=== PATIENT | female | born 1950 | race Asian ===

== ENCOUNTER → 2017-07-04 | Day surgery (SDC) | payer MEDICARE ==
[2017-06-18 14:57] LABS: BASOPHILS % 0.7 % (0.0-1.0); EOSINOPHILS % 0.9 % (0.0-6.0); HEMATOCRIT 39.3 % (34.2-44.1); HEMOGLOBIN 12.4 g/dL (12.0-16.0); LYMPHOCYTES # (AUTO) 1.8 (1.0-3.2); LYMPHOCYTES % 40.1 % (18.0-39.1); MEAN CORPUSCULAR HEMOGLOBIN 22.2 pg (28-32); MEAN CORPUSCULAR HGB CONC 31.6 g/dL (31-35); MEAN CORPUSCULAR VOLUME 70.4 fL (81-99); MONOCYTES # (AUTO) 0.3 (0.2-0.8); MONOCYTES % 6.3 % (4.4-11.3); NEUTROPHILS # (AUTO) 2.3 (2.1-6.9); NEUTROPHILS % 51.6 % (38.7-80.0); PLATELET COUNT 247 x10e3/uL (140-360); RED BLOOD COUNT 5.58 x10e6/uL (3.6-5.1); RED CELL DISTRIBUTION WIDTH 14.4 % (11.7-14.4)
[~2017-07-04] MED LIST: ASPIR 8181 MG PO; FENTANYL CITRATE/PF 100MCG/2 ML INJ ONE; INSULIN REGULAR, HUMAN 100 UNIT/1 ML 3ML VIAL ONE; LEVOTHYROXINE50 MCG PO; LISINOPRIL10 MG PO; METFORMIN HCL500 M1 PO; MIDAZOLAM HCL 2 MG/2 ML VIAL ONE; NESINA PO; OR PHACO EYE KIT ONE; PHENTERMINE H37.5 M1 PO; PREOP PHACO EYE KIT ONE; TRIAMTERENE-HCTZ1 EA PO
== END | disposition home or self-care (01) ==
LOC: OR 08:53
PROVIDERS: ATTEND Ophthalmology
DX: H25.11 Age-related nuclear cataract, right eye (principal); E11.9 Type 2 diabetes mellitus without complications; E04.9 Nontoxic goiter, unspecified; I10 Essential (primary) hypertension; E03.9 Hypothyroidism, unspecified; Z01.812 Encounter for preprocedural laboratory examination; Z79.82 Long term (current) use of aspirin
CPT/HCPCS: 36415 ×2; 66984; 82948; 85025; J2250; V2632

== ENCOUNTER → 2018-03-03 | Outpatient (CLI) | payer MEDICARE ==
[~2018-03-03] MED LIST changes: -FENTANYL CITRATE/PF 100MCG/2 ML INJ ONE; -INSULIN REGULAR, HUMAN 100 UNIT/1 ML 3ML VIAL ONE; -MIDAZOLAM HCL 2 MG/2 ML VIAL ONE; -OR PHACO EYE KIT ONE; -PREOP PHACO EYE KIT ONE
--- NOTE | 2018-03-03 13:12 | Diagnostic Imaging Report ---
EXAM: Bone mineral density study 03/03/2018 11:13 AM INDICATION: \S\MENOPAUSAL COMPARISON: None FINDINGS: Evaluation of the left hip and lumbar spine was performed. The study is technically adequate. The patient's fracture risk is compared to an age-matched control. Left femoral neck bone mineral density: 0.682 g/cm2, T-score is -1.5, Z-score is 0.1. Left hip total bone mineral density: 0.719 g/cm2, T-score is -1.8, Z-score is -0.5. Lumbar spine total bone mineral density: 1.161 gm/cm2, T-score is 1.0, Z-score is 2.9. IMPRESSION: Bone mineralization by WHO Classification is normal for lumbar spine, the fracture risk is not increased. Bone mineralization by WHO Classification is osteopenia for left hip, the fracture risk is increased. Signed by: Dr. Sandro Duncan MD on 03/03/2018 1:09 PM
== END ==
LOC: MAMMO 11:05
PROVIDERS: ATTEND Specialist
DX: Z12.31 Encounter for screening mammogram for malignant neoplasm of breast (principal); Z13.820 Encounter for screening for osteoporosis; Z78.0 Asymptomatic menopausal state
CPT/HCPCS: 77067; 77080

== ENCOUNTER → 2018-06-04 | Day surgery (SDC) | payer MEDICARE ==
[2018-05-26 12:29] LABS: BASOPHILS % 0.6 % (0.0-1.0); EOSINOPHILS # (AUTO) 0.1 (0.0-0.4); EOSINOPHILS % 1.5 % (0.0-6.0); HEMATOCRIT 38.2 % (34.2-44.1); HEMOGLOBIN 11.6 g/dL (12.0-16.0); LYMPHOCYTES # (AUTO) 1.5 (1.0-3.2); LYMPHOCYTES % 28.3 % (18.0-39.1); MEAN CORPUSCULAR HGB CONC 30.4 g/dL (31-35); MEAN CORPUSCULAR VOLUME 72.3 fL (81-99); MONOCYTES # (AUTO) 0.4 (0.2-0.8); MONOCYTES % 7.1 % (4.4-11.3); NEUTROPHILS # (AUTO) 3.2 (2.1-6.9); NEUTROPHILS % 61.9 % (38.7-80.0); PLATELET COUNT 286 x10e3/uL (140-360); RED BLOOD COUNT 5.28 x10e6/uL (3.6-5.1); RED CELL DISTRIBUTION WIDTH 13.6 % (11.7-14.4)
[~2018-06-04] MED LIST changes: +EPHEDRINE SULFATE INJ 50 MG/10 ML SYR ONE; +FENTANYL CITRATE/PF 100MCG/2 ML INJ ONE; +GLUCAGON FOR INJ 1 MG VIAL ONE; +HYOSCYAMINE SULFATE 0.5 MG/ML INJ ONE; +JANUMET 50-5001 EACH PO; +LANTUS 3ML100 UNITS/ SC; +LIDOCAINE HCL 2% LOCAL INJ 5 ML SDV VIAL INJ ONE; +MIDAZOLAM HCL 2 MG/2 ML VIAL ONE; +PROPOFOL IV EMULSION 10 MG/ML 50 ML VIAL ONE
--- OUTSIDE RECORDS SUMMARY | 2018-06-04 06:58 | XMS REPORT ---
Author Author [facility] Address Unknown Phone Unavailable Care Team Providers Care Owner [employer] Name Role Phone DENYS HERNANDES Unavailable Unavailable Problems This patient has no known problems. Allergies, Adverse Reactions, Alerts This patient has no known allergies or adverse reactions. Medications This patient has no known medications. Results Test Description Test Time Test Comments Text Results Atomic Results Result Comments BONE DXA DUAL ENERGY 2018-03-03 13:07:00 [place] [address] Patient Name: WALESKA SPANGLER MR #: [id number] : 1950 Age/Sex: 67/F Req #: [id number] [facility] Physician: Ordered by: DENYS HERNANDES MD Report #: [id number] Location: [facility] Room/Bed: Procedure: [id number] DX/BONE DXA DUAL ENERGY Exam Date: Exam Time: REPORT STATUS: Signed EXAM: Bone mineral density study 03/03/2018 11:13 AM INDICATION: COMPARISON: None FINDINGS: Evaluation of the left hip and lumbar spine was performed. The study is technically adequate. The patient's fracture risk is compared to an age-matched control. Left femoral neck bone mineral density: 0.682 g/cm2, T-score is -1.5, Z-score is 0.1. Left hip total bone mineral density: 0.719 g/cm2, T-score is -1.8, Z-score is -0.5. Lumbar spine total bone mineral density: 1.161 gm/cm2, T-score is 1.0, Z- score is 2.9. IMPRESSION: Bone mineralization by WHO Classification is normal for lumbar spine, the fracture risk is not increased. Bone mineralization by WHO Classification is osteopenia for left hip, the fracture risk is increased. Signed by: Dr. Sandro Glass MD on 03/03/2018 1:09 PM Dictated By: SANDRO GLASS MD 1309 Transcribed By: BRENDA on 03/03/18 1309 COPY TO: DENYS HERNANDES MD MAMMOGRAPHY DIGITAL SCR BILAT 2018-03-03 12:33:00 [place] [address] Patient Name: WALESKA SPANGELR MR #: [id number] : 1950 Age/Sex: 67/F Req #: [id number] [facility] Physician: Ordered by: DENYS HERNANDES MD Report #: [id number] Location: MAMMO Room/Bed: Procedure: [id number] MG/MAMMOGRAPHY DIGITAL SCR BILAT Exam Date: 03/03/18 Exam Time: 1108 REPORT STATUS: Signed #[id number] - [id number] #BILATERAL DIGITAL SCREENING MAMMOGRAM WITH CAD: 03/03/2018 CLINICAL: Routine screening. No prior exams were available for comparison. Current study contains 5 films. There are scattered fibroglandular elements in both breasts. Current study was also evaluated with a Computer Aided Detection (CAD) system. There are benign calcifications in both breasts. There also is a biopsy clip in the left breast. No significant masses, calcifications, or other findings are seen in either breast. IMPRESSION: BENIGN There is no mammographic evidence of malignancy. A 1 year screening mammogram is recommended. The patient will be notified by letter of the results. Phil mcgowan/wicho:03/06/2018 08:20:55 Land Resource Specialist: Veronica TONY(Thanh)(Alexander), [facility] letter sent: Normal Exam Mammogram BI-RADS: 2 Benign Dictated By: PHIL ALMANZA DO 9 Transcribed By: WICHO on 03/06/18819 COPY TO: DENYS HERNANDES MD MRI RIGHT KNEE WO [place] [address] Patient Name: WALESKA SPANGLER MR #: [id number] : 1950 Age/Sex: 66/F Req #: [id number] [facility] Physician: Ordered by: DENYS HERNANDES MD Report #: [id number] Location: MRI Room/Bed: Procedure: [id number] MRI/MRI RIGHT KNEE WO Exam Date: 04/01/17 Exam Time: 1430 REPORT STATUS: Signed TECHNIQUE: Magnetic resonance imaging of the RIGHT KNEE was performed WITHOUT injected contrast. HISTORY: Right knee COMPARISON: None available. FINDINGS: LIGAMENTS AND TENDONS: ACL: Intact PCL: Intact Collateral ligaments: Intact Iliotibial band: Unremarkable Popliteal tendon: Intact Extensor mechanism: Intact JOINT: Menisci: Medial: Root degeneration without tear. Mild meniscal extrusion. Lateral: Intact without tear Articular Cartilage: Medial Compartment: Diffuse partial thickness cartilage loss Lateral Compartment: Diffuse partial thickness cartilage loss Patellofemoral Compartment: Diffuse partial thickness cartilage loss Joint Fluid: Small joint effusion. BONE: No focal or infiltrative bone marrow replacing abnormality. No acute fracture. SOFT TISSUES: Otherwise, unremarkable. IMPRESSION: Medial meniscus root degeneration with extrusion. No tear. Tricompartmental cartilage loss. Signed by: Dr. Marek Harkins M.D. on 04/01/2017 4:05 PM Dictated By: MAREK HARKINS MD 160 Transcribed By: BRENDA on 04/01/17 1605 COPY TO: DENYS HERNANDES MD MRI SPINE LUMBAR WO [place] [address] Patient Name: WALESKA SPANGLER MR #: [id number] : 1950 Age/Sex: 66/F Req #: [id number] Adm Physician: Ordered by: DENYS HERNANDES MD Report #: [id number] Location: MRI Room/Bed: Procedure: [id number] MRI/MRI SPINE LUMBAR WO Exam Date: 04/01/17 Exam Time: 1430 REPORT STATUS: Signed History: Fell. Low back and right leg pain Comparison studies: None Technique: Sagittal, coronal and axial T2 , sagittal T1 and IR, axial spin density oblique. Intravenous contrast: None Findings: Number of lumbar vertebral bodies:5 Alignment: Normal lordosis.No scoliosis. Soft tissues: No T2 hyperintense inflammatory changes. 0.8 cm cystic lesion is seen in the left kidney lower pole. Paraspinal muscles: No signal abnormalities. No atrophy. Lower thoracic cord:Normal in signal and morphology. The tip of the conus is at T12-L1. Cauda equina: No masses. No arachnoiditis. Vertebrae: Normal in height. Hypointense lesion is seen at L3 vertebral body with fat content, most likely related to atypical hemangioma.. No compression fractures, infection or neoplasm. Degenerative changes: T12-11: inferiorly migrated disc extrusion results in moderate canal stenosis. AT12-L1: Mild disc degeneration. Inferiorly migrated disc extrusion results in mild canal stenosis without significant foraminal narrowing L1-L2: Mild disc degeneration with loss of T2 signal. L2 superior endplate Schmorl node. Mild disc bulge and mild facet hypertrophy results in mild canal stenosis without significant foraminal narrowing. L2-L3: Disc degeneration with loss of T2 signal at L2 inferior endplate Schmorl node is disc bulge and mild facet hypertrophy results in mild canal stenosis and mild left foraminal narrowing. L3-L4: Disc degeneration with loss of T2 signal. Mild diffuse disc bulge, mild facet hypertrophy and ligamentum flavum thickening results in mild canal stenosis and mild foraminal narrowing. L4-L5: Disc degeneration with loss of T2 signal. Diffuse disc bulge with superimposed small central disc protrusion, moderate bilateral face t hypertrophy and ligamentum flavum thickening results in moderate canal stenosis and mild bilateral foraminal narrowing. L5-S1: Patent canal and foramina. Additional findings: Partially visualized prominent liver. Partially visualized uterine posterior wall fibroid. IMPRESSION: No acute spinal abnormality. Moderate canal stenosis at T11-T12 secondary to inferiorly migrated disc extrusion, which is partially visualized. Moderate canal stenosis and mild bilateral foraminal narrowing at L4-L5 secondary to degenerative changes. Other mild degenerative changes as described above results in mild canal stenosis. Signed by: DR Octavio Diaz M.D. on 04/01/2017 6:06 PM Dictated By: OCTAVIO CARLSON MD 05 Transcribed By: BRENDA on 04/01/171805 COPY TO: DENYS HERNANDES MD
[2018-06-04 10:45] VITALS: BP 132/88
[2018-06-04 11:30] LABS: % IRON SATURATION 18 % (15-50); IRON 92 ug/dL (50-170); TOTAL IRON BINDING CAPACITY 510 ug/dL (261-478); TRANSFERRIN 364 mg/dL (180-382)
--- NOTE | 2018-06-04 13:12 | Operative Report ---
DATE OF PROCEDURE: June 04, 2018 REFERRING PHYSICIAN: Dr. Denys Hernandes PROCEDURE PERFORMED: Colonoscopy and polypectomy. INDICATIONS FOR COLONOSCOPY: Colorectal cancer screening. MEDICATION: Patient was done under MAC. Please see anesthesiologist's note. PROCEDURE: With the patient in the left lateral decubitus position, the flexible fiberoptic Olympus colonoscope was inserted into the rectum with ease and advanced all the way to the cecum. Prep overall was suboptimal with retained stools in the colon. The scope was then withdrawn slowly, and the cecum appeared to be within normal limits. Two polyps were snared and 1 polyp was hot biopsied from the ascending colon. One polypectomy site was hemoclipped. The transverse grossly appeared to be within normal limits. Two polyps were snared from the descending colon. Two polyps were hot biopsied from the sigmoid colon. One polyp was snared and 1 polyp was hot biopsied from the rectum. The scope was then retroflexed into the distal rectum. Small internal hemorrhoids were noted, none of which was actively bleeding. The scope was then straightened out. It was subsequently withdrawn. Patient tolerated the procedure well. IMPRESSION 1. Suboptimal prep. 2. Ascending colon polyps times 3, two snared and one polypectomy site hemoclipped and 1 polyp hot biopsied. 3. Descending colon polyps times 2, snared. 4. Sigmoid colon polyps times 2, hot biopsied. 5. Rectal polyps times 2, one snared and one hot biopsied. 6. Internal hemorrhoids, none actively bleeding. PLAN: Follow up histology. Patient might benefit from a followup colonoscopy in 1 year due to the suboptimal prep. Job#: [id number] cc:DENYS HERNANDES MD
== END | disposition home or self-care (01) ==
LOC: ENDO 06:56
PROVIDERS: ATTEND Internal Medicine Gastroenterology
DX: Z12.11 Encounter for screening for malignant neoplasm of colon (principal); D12.2 Benign neoplasm of ascending colon; D12.4 Benign neoplasm of descending colon; D12.5 Benign neoplasm of sigmoid colon; D12.8 Benign neoplasm of rectum; K64.8 Other hemorrhoids; I10 Essential (primary) hypertension; M19.90 Unspecified osteoarthritis, unspecified site; E11.9 Type 2 diabetes mellitus without complications; E04.9 Nontoxic goiter, unspecified; Z01.810 Encounter for preprocedural cardiovascular examination; Z01.812 Encounter for preprocedural laboratory examination; Z79.4 Long term (current) use of insulin
CPT/HCPCS: 36415 ×2; 45384; 45385; 82948; 83540; 84466; 85025; 85045; 88305; 93005; J1610; J1980; J2001; J2250; 45378

== ENCOUNTER → 2019-02-25 | Day surgery (SDC) | payer MEDICARE ==
[2019-02-17 16:14] LABS: BASOPHILS % 0.4 % (0.0-1.0); EOSINOPHILS # (AUTO) 0.1 (0.0-0.4); EOSINOPHILS % 1.1 % (0.0-6.0); HEMOGLOBIN 11.6 g/dL (12.0-16.0); LYMPHOCYTES # (AUTO) 1.7 (1.0-3.2); LYMPHOCYTES % 31.3 % (18.0-39.1); MEAN CORPUSCULAR HEMOGLOBIN 21.4 pg (28-32); MEAN CORPUSCULAR HGB CONC 30.5 g/dL (31-35); MEAN CORPUSCULAR VOLUME 70.1 fL (81-99); MONOCYTES # (AUTO) 0.4 (0.2-0.8); MONOCYTES % 6.3 % (4.4-11.3); NEUTROPHILS # (AUTO) 3.3 (2.1-6.9); NEUTROPHILS % 60.4 % (38.7-80.0); PLATELET COUNT 306 x10e3/uL (140-360); RED BLOOD COUNT 5.42 x10e6/uL (3.6-5.1); RED CELL DISTRIBUTION WIDTH 14.2 % (11.7-14.4)
[~2019-02-25] MED LIST changes: -EPHEDRINE SULFATE INJ 50 MG/10 ML SYR ONE; -FENTANYL CITRATE/PF 100MCG/2 ML INJ ONE; +HYOSCYAMINE 0.125 MG TAB ONE; -HYOSCYAMINE SULFATE 0.5 MG/ML INJ ONE; +INSULIN REGULAR, HUMAN 100 UNIT/1 ML 3ML VIAL ONE; +KETAMINE HCL INJ 50 MG/ML 10 ML VIAL ONE; -LIDOCAINE HCL 2% LOCAL INJ 5 ML SDV VIAL INJ ONE; +PHENTERMINE H37.5 MG PO
[2019-02-25 10:50] VITALS: BP 125/87
--- NOTE | 2019-02-25 10:58 | Operative Report ---
DATE OF PROCEDURE: 02/25/2019 SURGEON: Dru Porter MD PROCEDURES: Colonoscopy and polypectomy note. INDICATIONS FOR PROCEDURE: Surveillance colonoscopy, personal history of colon polyps, suboptimal prep on last colonoscopy. MEDICATION: The patient was done under MAC, please see anesthesiologist's note. PROCEDURE IN DETAIL: With the patient in left lateral decubitus position, a flexible fiberoptic Olympus colonoscope was inserted into the rectum with ease and advanced all the way to the cecum. The colon was excessively spastic and irritable, and visualization was suboptimal. The scope was then withdrawn slowly, whatever was visualized the mucosa overlying the cecum appeared to be within normal limits. One polyp was removed per the cold biopsy forceps from the ascending colon. Two polyps were removed from the transverse colon per the cold biopsy forceps; one polyp was snared, one polyp was hot biopsied from the descending colon. The sigmoid and the rectum grossly appeared to be within normal limits. The scope was then retroflexed into the distal rectum. Small internal hemorrhoids were noted, none of which was actively bleeding. The scope was then straightened out, thus the scope was subsequently withdrawn. The patient tolerated the procedure well. IMPRESSION: 1. Ascending colon polyp, removed per the cold biopsy forceps. 2. Transverse colon polyps x2, cold biopsied. 3. Descending colon polyps x2, one snared and one hot biopsied. 4. Internal hemorrhoids, none actively bleeding. PLAN: 1. Follow up histology. 2. Initiate high-fiber, low-fat diet. 3. Initiate high-fiber supplement. 4. The patient might benefit from a followup colonoscopy in 3 years. Dru Porter MD [facility] /[id number]
== END | disposition home or self-care (01) ==
LOC: OR 06:48
PROVIDERS: ATTEND Internal Medicine Gastroenterology
DX: D12.4 Benign neoplasm of descending colon (principal); D12.3 Benign neoplasm of transverse colon; E03.9 Hypothyroidism, unspecified; E11.9 Type 2 diabetes mellitus without complications; I10 Essential (primary) hypertension; K63.5 Polyp of colon; K64.8 Other hemorrhoids; Z68.30 Body mass index [BMI] 30.0-30.9, adult; Z79.84 Long term (current) use of oral hypoglycemic drugs; Z01.810 Encounter for preprocedural cardiovascular examination; Z86.010 Personal history of colon polyps; Z01.812 Encounter for preprocedural laboratory examination
CPT/HCPCS: 36415 ×2; 45380; 45384; 45385; 82948; 85025; 88305; 93005; J1610; J2250; J2704; 45378; J1817

== ENCOUNTER → 2019-05-06 | Day surgery (SDC) | payer MEDICARE ==
[2019-05-01 12:07] LABS: BASOPHILS % 0.4 % (0.0-1.0); EOSINOPHILS % 0.8 % (0.0-6.0); HEMOGLOBIN 11.5 g/dL (12.0-16.0); LYMPHOCYTES # (AUTO) 1.5 (1.0-3.2); LYMPHOCYTES % 29.1 % (18.0-39.1); MEAN CORPUSCULAR HEMOGLOBIN 22.1 pg (28-32); MEAN CORPUSCULAR HGB CONC 31.1 g/dL (31-35); MONOCYTES # (AUTO) 0.3 (0.2-0.8); MONOCYTES % 5.5 % (4.4-11.3); NEUTROPHILS # (AUTO) 3.3 (2.1-6.9); NEUTROPHILS % 63.8 % (38.7-80.0); PLATELET COUNT 278 x10e3/uL (140-360); RED BLOOD COUNT 5.21 x10e6/uL (3.6-5.1); RED CELL DISTRIBUTION WIDTH 14.4 % (11.7-14.4)
[2019-05-01 12:27] LABS: ANION GAP 13.5 mmol/L (8-16); BLOOD UREA NITROGEN 10 mg/dL (7-26); BUN/CREATININE RATIO 14 (6-25); CALCIUM 10.4 mg/dL (8.4-10.2); CARBON DIOXIDE 28 mmol/L (22-29); CHLORIDE 100 mmol/L (98-107); CREATININE, SERUM 0.71 mg/dL (0.57-1.11); EST GLOMERULAR FILTRATION RATE > 60 ML/MIN (60-); GLUCOSE 181 mg/dL (74-118); POTASSIUM 4.5 mmol/L (3.5-5.1); SODIUM 137 mmol/L (136-145)
--- NOTE | 2019-05-01 13:30 | Diagnostic Imaging Report ---
EXAMINATION: CHEST 2 VIEWS INDICATION: Pre-operative COMPARISON: None FINDINGS: LINES/TUBES:None LUNGS:The lungs are well-inflated. No focal consolidation or pulmonary edema. PLEURA:No pleural effusion or pneumothorax. MEDIASTINUM:The cardiomediastinal silhouette appears normal in size and shape. Atherosclerotic calcifications of the thoracic aorta. BONES/SOFT TISSUES:No acute osseous injury. ABDOMEN:No free air under the diaphragm. IMPRESSION: No focal pneumonia or pulmonary edema. Signed by: Anna Sorenson MD on 05/01/2019 1:27 PM
[~2019-05-06] MED LIST changes: +ACETAMINOPHEN 1000 MG/100 ML 100 ML IV ONE; +ACETAMINOPHEN 1000 MG/100 ML IV ONE; +ASPIRIN81 MG PO; +BUPIVACAINE 0.5%/EPI 30 ML SDV INJ ONE; +CEFAZOLIN SOD 1 GM/NS 50ML 100 ML IV ONE; +FENTANYL CITRATE/PF 100MCG/2 ML INJ ONE; -GLUCAGON FOR INJ 1 MG VIAL ONE; -HYOSCYAMINE 0.125 MG TAB ONE; -INSULIN REGULAR, HUMAN 100 UNIT/1 ML 3ML VIAL ONE; -KETAMINE HCL INJ 50 MG/ML 10 ML VIAL ONE; +LIDOCAINE HCL 2% LOCAL INJ 5 ML SDV VIAL INJ ONE; +MELOXICAM7.5 MG PO; -MIDAZOLAM HCL 2 MG/2 ML VIAL ONE; +NORCO 10-325 T1 EACH PO; +ONDANSETRON HCL INJ 2MG/ML 2ML 2 MG/ML VIAL ONE; +PROPOFOL IV EMULSION 10 MG/ML 20 ML VIAL ONE; -PROPOFOL IV EMULSION 10 MG/ML 50 ML VIAL ONE; +SEVOFLURANE INHAL SOLN 250 ML PEN BTL ONE; +TRULICITY1.5 MG/0.5 SC
[2019-05-06 12:00] VITALS: BP 128/82
--- NOTE | 2019-05-06 14:02 | Operative Report ---
DATE OF PROCEDURE: 05/06/2019 SURGEON: Bello Elkins MD PREOPERATIVE DIAGNOSES: Right knee medial meniscus tear, right knee degenerative joint disease of the knee. POSTOPERATIVE DIAGNOSES: Right knee medial meniscus tear, right knee degenerative joint disease of the knee. OPERATION AND PROCEDURES PERFORMED: The patient underwent a left knee examination under anesthesia, right knee arthroscopy, right knee partial medial meniscectomy, right knee chondroplasty of the patella, the trochlea, the medial femoral condyle, the medial tibial plateau and the lateral tibial plateau. SOLUTIONS ARCHITECT: Lise Chandler. ANESTHESIA: General endotracheal intubation anesthesia. IV FLUIDS: Per the anesthesia record. BRIEF DESCRIPTION OF THE PATIENT'S OPERATIVE PROCEDURE: Ms. Kendrick was taken to the operating room, placed in supine position on the operating table. Following induction of general anesthesia as well as endotracheal intubation, the patient's right lower extremity was examined under anesthesia. She was found to have a mild effusion within the knee joint, but otherwise ligamentously stable knee. The patient's lower extremity was prepped and draped in standard surgical fashion. A two-port technique was used to provide this patient arthroscopic evaluation of the knee joint. Examination of suprapatellar pouch, medial and lateral gutters found no evidence of loose bodies. There was however evidence of chondromalacia of the patellar and trochlear surfaces. This scope was advanced to medial compartment and medial compartment demonstrated a torn medial meniscus. There was also chondromalacia of the articulating surfaces. A combination of biting forceps and a motorized shaver were used to resect the torn portion of meniscus. Chondroplasties of the medial femoral condyle and medial tibial plateau were performed at this time. Scope was advanced in the intercondylar notch and the anterior cruciate ligament was identified and found to be intact. Scope was advanced to lateral compartment and there was chondromalacia of the lateral tibial plateau. A chondroplasty of this surface was performed. The scope was then advanced in the suprapatellar pouch and chondroplasties of the patella and trochlea were performed. The knee was inflated with sterile normal saline. Each of the portal sites were closed using 4-0 nylon suture. The portal sites as well as knee itself were injected with 0.5% Marcaine with epinephrine. Sterile dressings were applied. The patient was awakened, taken to postanesthesia care unit in stable condition. MD DARIN Castañeda/KAYLEY /[id number]
== END | disposition home or self-care (01) ==
LOC: OR 08:00
PROVIDERS: ATTEND Specialist
DX: S83.221A Peripheral tear of medial meniscus, current injury, right knee, initial encounter (principal); S39.012A Strain of muscle, fascia and tendon of lower back, initial encounter; M17.11 Unilateral primary osteoarthritis, right knee; M22.41 Chondromalacia patellae, right knee; E11.9 Type 2 diabetes mellitus without complications; I10 Essential (primary) hypertension; X58.XXXA Exposure to other specified factors, initial encounter; Z01.810 Encounter for preprocedural cardiovascular examination; Z01.812 Encounter for preprocedural laboratory examination; Z01.818 Encounter for other preprocedural examination; Z79.84 Long term (current) use of oral hypoglycemic drugs; Z79.82 Long term (current) use of aspirin; Z79.4 Long term (current) use of insulin
CPT/HCPCS: 29881; 36415 ×2; 71046; 80048; 82948; 85025; 93005; J0131; J0690; J2001; J2405; J2704; J3010